=== PATIENT | male | born 1965 | race Two or more races ===

== ENCOUNTER 2017-08-12 19:50 | Emergency (ER) | payer MEDICAID ==
[~2017-08-12] VITALS: Ht 162.6 cm; Wt 65.8 kg
[2017-08-12 20:15] VITALS: BP 122/86
[2017-08-12] MEDS ORDERED: KEFLEX500 MG ORAL (21:16)
[2017-08-12] MEDS ORDERED: IBUPROFEN600 MG ORAL (21:17)
--- NOTE | 2017-08-12 21:18 | Emergency Room Report ---
History of Present Illness General Chief Complaint: Earache Source: Patient Present Illness HPI Patient is a 52-year-old male presented after increased left sided facial pain and swelling. Patient gradual onset of symptoms are one week. He reports having some nonproductive cough. He reports having some left ear pain. He denied hearing loss. He denied any change in facial movements. He denied any chest pain or shortness of breath. Allergies: Coded Allergies: No Known Allergies (Unverified , 08/12/17) Patient History Reviewed Nursing Documentation: PMH: Agreed, PSxH: Agreed Nursing Documentation-PMH Past Medical History: No Stated History Review of Systems All Other Systems: negative except mentioned in HPI Physical Exam Vital Signs Date Time Temp Pulse Resp B/P (MAP) Pulse Ox O2 Delivery O2 Flow Rate FiO2 08/12/17 20:12 97.9 67 14 122/86 96 Room Air 97.9 General Appearance: well appearing, no apparent distress Head: normocephalic, atraumatic ENT: hearing grossly normal, normal voice, other - left parotid swelling, tm normal Neck: full range of motion, supple Respiratory: no respiratory distress, speaking full sentences Musculoskeletal: no calf tenderness Neurologic: normal gait Psychiatric: mood/affect normal Skin: no rash Medical Decision Making Diagnostic Impression: Primary Impression: Acute parotitis ER Course Patient presented for ear pain. Differential diagnosis included was not limited to otitis media, malignant otitis externa, foreign body, cellulitis, mastoiditis, carotid dissection, myocardial infarction among others. Patient has a benign exam and does not appear to require any further imaging or laboratory testing at this time. Patient appears to have parotid gland infection. He'll be prescribed antibiotics. The patient is advised to follow up with primary care doctor in 1-2 days. Patient is advised to return if any worsening condition or if any changes in status that are concerning. This report is dictated with [employer] educational administrator software which may occasionally lead to discrepancies related to use of this software. Last Vital Signs Date Time Temp Pulse Resp B/P (MAP) Pulse Ox O2 Delivery O2 Flow Rate FiO2 08/12/17 20:12 97.9 67 14 122/86 96 Room Air 97.9 Status: improved Disposition: HOME, SELF-CARE Condition: Stable Scripts Ibuprofen* (MOTRIN*) 600 Mg Tablet 600 MG ORAL Q8H Y for For Pain, #30 TAB 0 Refills Prov: Tato Rowan 08/12/17 Cephalexin* (KEFLEX*) 500 Mg Capsule 500 MG ORAL Q6H, #28 CAP 0 Refills Prov: Tato Rowan 08/12/17 Patient Instructions: Parotitis, [id number] Tato Rowan Aug 12, 2017 21:18
[2017-08-12 21:35] VITALS: BP 122/86
== END 2017-08-12 21:35 | disposition home or self-care (01) ==
LOC: EMR 21:02
DX: K11.21 Acute sialoadenitis (principal)
CPT/HCPCS: 99284